=== PATIENT | male | born 1940 | race Caucasian/White ===

== ENCOUNTER 2017-02-25 20:52 | Emergency (ER) | payer MEDICARE, BC ==
[2017-02-25 21:28] VITALS: BP 152/82
--- NOTE | 2017-02-25 22:57 | EDM.PDOC ---
ED HPI GENERAL MEDICAL PROBLEM - General Chief Complaint: Genitourinary Problem Stated Complaint: BLOOD IN URINE Time Seen by Provider: 02/25/17 21:28 Source of Information: Reports: Patient History Limitations: Reports: No Limitations - History of Present Illness INITIAL COMMENTS - FREE TEXT/NARRATIVE: This patient complains of blood in the urine. He did some lifting this morning. He is worried because he's had 3 hernia surgeries. He complains of some minor pain in the left side of the lower abdomen over the inguinal canal. He denies any Dysuria. There's been no fever. He denies any other bleeding problems. He's not using any kind of anticoagulation. - Related Data Allergies Allergy/AdvReac Type Severity Reaction Status Date / Time No Known Allergies Allergy Verified 09/16/13 08:00 Home Meds: Home Meds Carvedilol Phosphate [Coreg Cr] 40 mg PO DAILY 02/25/17 [History] Lisinopril 40 mg PO DAILY 02/25/17 [History] Tamsulosin [Flomax] 0.4 mg PO DAILY 02/25/17 [History] Tiotropium [Spiriva HandiHaler] 1 cap INH DAILY 02/25/17 [History] rOPINIRole HCl [Requip] 1 mg PO BEDTIME 02/25/17 [History] Past Medical History HEENT History: Reports: Impaired Vision Cardiovascular History: Reports: CAD, Hypertension Respiratory History: Reports: COPD Genitourinary History: Reports: Prostate Disorder, Renal Calculus Musculoskeletal History: Reports: Arthritis, Back Pain, Chronic Endocrine/Metabolic History: Reports: Diabetes, Type II - Past Surgical History Male Surgical History: Reports: TURP-Transurethral Resection of Prostate Social & Family History - Tobacco Use Smoking Status *Q: Never Smoker - Caffeine Use Caffeine Use: Reports: Coffee, Soda ED ROS GENERAL - Review of Systems Review Of Systems: ROS reveals no pertinent complaints other than HPI. ED EXAM, RENAL/ - Physical Exam Exam: See Below Exam Limited By: No Limitations General Appearance: Alert, WD/WN, No Apparent Distress Respiratory/Chest: Lungs Clear Cardiovascular: Normal Peripheral Pulses, Regular Rate, Rhythm GI/Abdominal: Normal Bowel Sounds, Soft, Non-Tender (Male) Exam: No Hernia, Normal Inspection. No: Penile Lesions Extremities: Normal Inspection Course - Vital Signs Last Recorded V/S: Last Vital Signs Temp 36.9 C 02/25/17 21:29 Pulse 69 02/25/17 21:29 Resp 18 02/25/17 21:29 BP 152/82 H 02/25/17 21:29 Pulse Ox 95 02/25/17 21:29 - Orders/Labs/Meds Labs: Laboratory Tests 02/25/17 Range/Units 21:49 Urine Color Red Urine Appearance Turbid Urine pH 7.0 (4.5-8.0) Ur Specific [place] 1.010 (1.008-1.030) Urine Protein 30 H (NEGATIVE) mg/dL Urine Glucose (UA) Normal (NEGATIVE) mg/dL Urine Ketones Negative (NEGATIVE) mg/dL Urine Occult Blood Large (NEGATIVE) Urine Nitrite Negative (NEGAITVE) Urine Bilirubin Negative (NEGATIVE) Urine Urobilinogen Normal (NORMAL) mg/dL Ur Leukocyte Esterase Negative (NEGATIVE) Urine RBC Packed H (0-5) Urine WBC Not seen (0-5) Ur Epithelial Cells Rare Amorphous Sediment Not seen Urine Bacteria Few Urine Mucus Not seen - Re-Assessments/Exams Free Text/Narrative Re-Assessment/Exam: 02/26/17 04:11 Urine is packed with RBCs no obvious clots. No evidence of any infection. There is nothing to suggest a coagulopathy so labs were not done for that. If the bleeding doesn't stop within the next 2 days and he'll need further workup. Departure - Departure Time of Disposition: 22:54 Disposition: Home, Self-Care 01 Condition: Fair Clinical Impression: Hematuria syndrome - Discharge Information Instructions: Hematuria, Adult Referrals: Brian Mays MD [Primary Care Provider] - Forms: ED Department Discharge Additional Instructions: There is no evidence of an infection that would cause bleeding. If the bleeding doesn't stop in the next 2 days then you will need to be seen in clinic on Monday and probably be referred to a urologist. You will also need blood work and maybe imaging. Don't take any aspirin, motrin or similar meds. You may continue all the other meds.
== END 2017-02-25 23:08 | disposition home or self-care (01) ==
LOC: JP.ED 20:52
DX: R31.9 Hematuria, unspecified (principal); H54.7 Unspecified visual loss; I25.10 Atherosclerotic heart disease of native coronary artery without angina pectoris; I10 Essential (primary) hypertension; M19.90 Unspecified osteoarthritis, unspecified site; J44.9 Chronic obstructive pulmonary disease, unspecified; E11.9 Type 2 diabetes mellitus without complications; Z87.442 Personal history of urinary calculi; Z79.899 Other long term (current) drug therapy; Z98.890 Other specified postprocedural states
CPT/HCPCS: 81001; 99282; 99284

== ENCOUNTER 2017-04-26 06:17 | Emergency (ER) | payer MEDICARE, BC ==
[2017-04-26 06:33] VITALS: BP 168/97
[2017-04-26] MEDS ORDERED: Phenazopyridine 95 MG Tab PO ONE (07:05)
--- NOTE | 2017-04-26 07:22 | EDM.PDOC ---
[id number]: CAN'T URINATE Time Seen by Provider: 04/26/17 07:00 Source of Information: Reports: Patient, Family History Limitations: Reports: No Limitations - History of Present Illness INITIAL COMMENTS - FREE TEXT/NARRATIVE: 76-year-old male with prostatic hypertrophy has had problems with urinary retention in the past developed difficulty urinating late last evening and this morning arrived very uncomfortable just urinating small amounts at a time. No fevers or chills, no back pain. Onset: Gradual (Over the last 12 hours) Severity: Moderate Associated Symptoms: Denies: Chest Pain, Fever/Chills, Nausea/Vomiting, Shortness of Breath Bladder Pain Score (Numeric/FACES): 7 - Related Data Allergies Allergy/AdvReac Type Severity Reaction Status Date / Time No Known Allergies Allergy Verified 04/26/17 06:33 Home Meds: Home Meds Carvedilol Phosphate [Coreg Cr] 40 mg PO DAILY 02/25/17 [History] Lisinopril 40 mg PO DAILY 02/25/17 [History] Tamsulosin [Flomax] 0.4 mg PO DAILY 02/25/17 [History] Tiotropium [Spiriva HandiHaler] 1 cap INH DAILY 02/25/17 [History] rOPINIRole HCl [Requip] 1 mg PO BEDTIME 02/25/17 [History] Finasteride 5 mg PO DAILY 04/26/17 [History] Past Medical History HEENT History: Reports: Impaired Vision Cardiovascular History: Reports: CAD, Hypertension Respiratory History: Reports: COPD Genitourinary History: Reports: Prostate Disorder, Renal Calculus Musculoskeletal History: Reports: Arthritis, Back Pain, Chronic Endocrine/Metabolic History: Reports: Diabetes, Type II - Past Surgical History Male Surgical History: Reports: TURP-Transurethral Resection of Prostate Social & Family History - Tobacco Use Smoking Status *Q: Never Smoker - Caffeine Use Caffeine Use: Reports: Coffee, Soda - Recreational Drug Use Recreational Drug Use: No ED ROS GENERAL - Review of Systems Review Of Systems: See Below Constitutional: Denies: Fever, Chills, Malaise Respiratory: Denies: Shortness of Breath Cardiovascular: Denies: Chest Pain GI/Abdominal: Reports: Abdominal Pain. Denies: Nausea, Vomiting : Reports: Urinary Retention ED EXAM, RENAL/ - Physical Exam Exam: See Below Exam Limited By: No Limitations General Appearance: Alert, Mild Distress (Very uncomfortable) Respiratory/Chest: No Respiratory Distress Cardiovascular: Regular Rate, Rhythm GI/Abdominal: Tender (Tender with bladder distention over the lower abdomen) Neurological: Alert, Oriented Psychiatric: Anxious Skin Exam: Warm, Dry Course - Vital Signs Last Recorded V/S: Last Vital Signs Temp 99.0 F 04/26/17 06:30 Pulse 77 04/26/17 06:30 Resp 26 H 04/26/17 06:30 BP 168/97 H 04/26/17 06:30 Pulse Ox 96 04/26/17 06:30 - Orders/Labs/Meds Orders: Active Orders 24 hr Category Date Time Status CULTURE URINE [RM] Stat Lab 04/26/17 06:50 Received Labs: Laboratory Tests 04/26/17 Range/Units 06:49 Urine Color Yellow Urine Appearance Clear Urine pH 7.0 (4.5-8.0) Ur Specific [place] 1.005 L (1.008-1.030) Urine Protein Negative (NEGATIVE) mg/dL Urine Glucose (UA) Normal (NEGATIVE) mg/dL Urine Ketones Negative (NEGATIVE) mg/dL Urine Occult Blood Moderate (NEGATIVE) Urine Nitrite Positive H (NEGAITVE) Urine Bilirubin Negative (NEGATIVE) Urine Urobilinogen Normal (NORMAL) mg/dL Ur Leukocyte Esterase Moderate (NEGATIVE) Urine RBC 0-5 (0-5) Urine WBC 0-5 (0-5) Ur Epithelial Cells Not seen Amorphous Sediment Not seen Urine Bacteria Many Urine Mucus Not seen Meds: Medications Discontinued Medications Generic Name Dose Route Start Last Admin Trade Name Freq PRN Reason Stop Dose Admin Phenazopyridine HCl 190 mg 04/26/17 07:05 04/26/17 07:09 Urinary Pain Relief PO 04/26/17 07:06 190 mg ONETIME ONE Administration - Re-Assessments/Exams Free Text/Narrative Re-Assessment/Exam: 04/26/17 07:19 Bladder scan revealed over 600 mL of urine in the bladder after urination. A Payne was then placed that revealed his symptoms initially but he developed bladder spasms. He was given 200 mg of Pyridium by mouth. A UA revealed nitrite positive urine with bacteria so culture was initiated and he was placed on cephalexin 500 3 times a day for 5 days. Patient wanted to keep the Payne in place for a few days, he was instructed to have it removed before the antibiotics are finished. She was also given 20 doses of Pyridium to take as needed. Departure - Departure Time of Disposition: 07:40 Disposition: Home, Self-Care 01 Condition: Good Clinical Impression: UTI, Urinary tract infectious disease, Acute retention of urine - Discharge Information Instructions: Urinary Tract Infection, Adult, [id number] Referrals: PCP,None [Primary Care Provider] - Forms: ED Department Discharge Care Plan Goals: Take antibiotic 3 times a day for 5 days, take bladder spasm medicine every 8 hours if needed and remove the Payne within the next 5 days. You will be contacted if a different antibiotic is needed, return anytime if worsening or concerns. - My Orders Last 24 Hours: My Active Orders 04/26/17 06:50 CULTURE URINE [RM] Stat - Assessment/Plan Last 24 Hours: My Active Orders 04/26/17 06:50 CULTURE URINE [RM] Stat
== END 2017-04-26 07:49 | disposition home or self-care (01) ==
LOC: JP.ED 06:17
DX: N39.0 Urinary tract infection, site not specified (principal); R33.9 Retention of urine, unspecified; I25.10 Atherosclerotic heart disease of native coronary artery without angina pectoris; I10 Essential (primary) hypertension; J44.9 Chronic obstructive pulmonary disease, unspecified; M19.90 Unspecified osteoarthritis, unspecified site; E11.9 Type 2 diabetes mellitus without complications; Z79.899 Other long term (current) drug therapy; Z87.442 Personal history of urinary calculi; Z98.890 Other specified postprocedural states
CPT/HCPCS: 51702; 81001; 87086; 99284; A9270; 87088; 87186

== ENCOUNTER 2017-09-22 14:59 | Emergency (ER) | payer MEDICARE, BC ==
--- NOTE | 2017-09-22 15:47 | EDM.PDOC ---
ED HPI GENERAL MEDICAL PROBLEM - General Chief Complaint: General Stated Complaint: NO ENERGY, OFF BALANCE Time Seen by Provider: 09/22/17 15:15 Source of Information: Reports: Patient, Family History Limitations: Reports: No Limitations - History of Present Illness INITIAL COMMENTS - FREE TEXT/NARRATIVE: pt has been very fatiqued for the past few days. He is off balance slightly when he tries to move. He is quite sob. He has a history of copd. Onset: Gradual Duration: Day(s):, Getting Worse Associated Symptoms: Reports: Shortness of Breath, Other (pt is feeling off balance. ) Back Pain Score (Numeric/FACES): 2 - Related Data Allergies Allergy/AdvReac Type Severity Reaction Status Date / Time No Known Allergies Allergy Verified 04/26/17 06:33 Home Meds: Home Meds Carvedilol Phosphate [Coreg Cr] 40 mg PO DAILY 02/25/17 [History] Lisinopril 40 mg PO DAILY 02/25/17 [History] Tamsulosin [Flomax] 0.4 mg PO DAILY 02/25/17 [History] Tiotropium [Spiriva HandiHaler] 1 cap INH DAILY 02/25/17 [History] rOPINIRole HCl [Requip] 1 mg PO BEDTIME 02/25/17 [History] Finasteride 5 mg PO DAILY 04/26/17 [History] Furosemide [Furosemide] 40 mg PO DAILY 09/22/17 [History] Spironolactone [Aldactone] 25 mg PO DAILY 09/22/17 [History] Warfarin Sodium [Jantoven] 8 mg PO ASDIRECTED 09/22/17 [History] Past Medical History HEENT History: Reports: Impaired Vision Cardiovascular History: Reports: Afib, CAD, Heart Failure, Hypertension Respiratory History: Reports: COPD Genitourinary History: Reports: Prostate Disorder, Renal Calculus Musculoskeletal History: Reports: Arthritis, Back Pain, Chronic Endocrine/Metabolic History: Reports: Diabetes, Type II - Past Surgical History Male Surgical History: Reports: TURP-Transurethral Resection of Prostate Social & Family History - Tobacco Use Smoking Status *Q: Never Smoker - Caffeine Use Caffeine Use: Reports: Coffee - Recreational Drug Use Recreational Drug Use: No ED ROS GENERAL - Review of Systems Review Of Systems: See Below Constitutional: Reports: No Symptoms HEENT: Reports: Other (pt does not have a vertigo like symptom but he is off balance when he stands up. ) Respiratory: Reports: Shortness of Breath Cardiovascular: Reports: No Symptoms Endocrine: Reports: No Symptoms GI/Abdominal: Reports: No Symptoms : Reports: No Symptoms Musculoskeletal: Reports: No Symptoms Skin: Reports: No Symptoms ED EXAM, GENERAL - Physical Exam Exam: See Below Free Text/Narrative:: pt has been fatiqued and off balance when he stands up. He has not had chest pain. He has been slightly more sob although his o2 sats remain good. r Exam Limited By: No Limitations General Appearance: Alert, Mild Distress, Other (pupils are equal and reactive to lite. ) Ears: Normal TMs Nose: Normal Inspection Throat/Mouth: Normal Inspection Head: Atraumatic Neck: Normal Inspection Respiratory/Chest: Decreased Breath Sounds, Other (pt is maintaining o2 sats at the low 90s. ) Cardiovascular: Regular Rate, Rhythm, Other (pt is having some ventricular ectopics. ) GI/Abdominal: Soft, Non-Tender (Male) Exam: Deferred Rectal (Males) Exam: Deferred Back Exam: Normal Inspection Extremities: Other (pt has good control of the edema) Neurological: Alert, Oriented, Normal Cognition Psychiatric: Normal Affect Course - Vital Signs Last Recorded V/S: Last Vital Signs Temp 36.5 C 09/22/17 18:29 Pulse 67 09/22/17 18:29 Resp 16 09/22/17 18:29 BP 123/64 09/22/17 18:29 Pulse Ox 94 L 09/22/17 18:29 - Orders/Labs/Meds Orders: Active Orders 24 hr Category Date Time Status EKG Documentation Completion [RC] ASDIRECTED Care 09/22/17 16:00 Active Chest 2V [CR] Stat Exams 09/22/17 16:01 Taken Chest wo Cont [CT] Stat Exams 09/22/17 16:50 Taken CULTURE URINE [RM] Stat Lab 09/22/17 17:30 Received cefTRIAXone 1 GM,Lidocaine 1% 2.1 ML Med 09/22/17 18:47 Ordered cefTRIAXone [Rocephin] 1 gm Lidocaine 1% [Xylocaine-MPF 1%] 2.1 ml IM ONETIME EKG 12 Lead [EK] Routine Ther 09/22/17 16:00 Ordered Labs: Laboratory Tests 09/22/17 09/22/17 09/22/17 Range/Units 15:45 15:45 15:45 WBC 7.5 (4.5-11.0) K/uL RBC 5.18 (4.30-5.90) M/uL Hgb 14.3 (12.0-15.0) g/dL Hct 42.4 (40.0-54.0) % MCV 82 (80-98) fL MCH 28 (27-31) pg MCHC 34 (32-36) % Plt Count 212 (150-400) K/uL Neut % (Auto) 52 (36-66) % Lymph % (Auto) 35 (24-44) % [place] % (Auto) 11 H (2-6) % Eos % (Auto) 2 (2-4) % Baso % (Auto) 1 (0-1) % PT 24.9 H (9.5-12.0) sec INR 2.25 H (0.80-1.20) Sodium 142 (140-148) mmol/L Potassium 4.2 (3.6-5.2) mmol/L Chloride 107 (100-108) mmol/L Carbon Dioxide 23 (21-32) mmol/L Anion Gap 12.4 (5.0-14.0) mmol/L BUN 24 H (7-18) mg/dL Creatinine 0.9 (0.8-1.3) mg/dL Est Cr Clr Drug Dosing 74.25 mL/min Estimated GFR (MDRD) > 60 (>60) Glucose 119 H (74-106) mg/dL Lactic Acid (0.4-2.0) mmol/L Calcium 8.5 (8.5-10.1) mg/dL Total Bilirubin 0.3 (0.2-1.0) mg/dL AST 17 (15-37) U/L ALT 33 (12-78) U/L Alkaline Phosphatase 121 H (46-116) U/L Troponin I (0.000-0.056) ng/mL C-Reactive Protein 0.44 H (0.0-0.3) mg/dL Total Protein 6.3 L (6.4-8.2) g/dL Albumin 3.3 L (3.4-5.0) g/dL Globulin 3.0 (2.3-3.5) g/dL Albumin/Globulin Ratio 1.1 L (1.2-2.2) Urine Color Urine Appearance Urine pH (4.5-8.0) Ur Specific [place] (1.008-1.030) Urine Protein (NEGATIVE) mg/dL Urine Glucose (UA) (NEGATIVE) mg/dL Urine Ketones (NEGATIVE) mg/dL Urine Occult Blood (NEGATIVE) Urine Nitrite (NEGAITVE) Urine Bilirubin (NEGATIVE) Urine Urobilinogen (NORMAL) mg/dL Ur Leukocyte Esterase (NEGATIVE) Urine RBC (0-5) Urine WBC (0-5) Ur Epithelial Cells Amorphous Sediment Urine Bacteria Urine Mucus 09/22/17 09/22/17 09/22/17 Range/Units 16:01 16:30 17:20 WBC (4.5-11.0) K/uL RBC (4.30-5.90) M/uL Hgb (12.0-15.0) g/dL Hct (40.0-54.0) % MCV (80-98) fL MCH (27-31) pg MCHC (32-36) % Plt Count (150-400) K/uL Neut % (Auto) (36-66) % Lymph % (Auto) (24-44) % [place] % (Auto) (2-6) % Eos % (Auto) (2-4) % Baso % (Auto) (0-1) % PT (9.5-12.0) sec INR (0.80-1.20) Sodium (140-148) mmol/L Potassium (3.6-5.2) mmol/L Chloride (100-108) mmol/L Carbon Dioxide (21-32) mmol/L Anion Gap (5.0-14.0) mmol/L BUN (7-18) mg/dL Creatinine (0.8-1.3) mg/dL Est Cr Clr Drug Dosing mL/min Estimated GFR (MDRD) (>60) Glucose (74-106) mg/dL Lactic Acid 1.4 (0.4-2.0) mmol/L Calcium (8.5-10.1) mg/dL Total Bilirubin (0.2-1.0) mg/dL AST (15-37) U/L ALT (12-78) U/L Alkaline Phosphatase (46-116) U/L Troponin I < 0.017 (0.000-0.056) ng/mL C-Reactive Protein (0.0-0.3) mg/dL Total Protein (6.4-8.2) g/dL Albumin (3.4-5.0) g/dL Globulin (2.3-3.5) g/dL Albumin/Globulin Ratio (1.2-2.2) Urine Color Yellow Urine Appearance Slightly cloudy Urine pH 5.0 (4.5-8.0) Ur Specific [place] 1.020 (1.008-1.030) Urine Protein Negative (NEGATIVE) mg/dL Urine Glucose (UA) Normal (NEGATIVE) mg/dL Urine Ketones Negative (NEGATIVE) mg/dL Urine Occult Blood Negative (NEGATIVE) Urine Nitrite Positive H (NEGAITVE) Urine Bilirubin Negative (NEGATIVE) Urine Urobilinogen Normal (NORMAL) mg/dL Ur Leukocyte Esterase Large (NEGATIVE) Urine RBC 0-5 (0-5) Urine WBC Semi-packed H (0-5) Ur Epithelial Cells Rare Amorphous Sediment Not seen Urine Bacteria Many Urine Mucus Not seen - Re-Assessments/Exams Free Text/Narrative Re-Assessment/Exam: 09/22/17 18:56 pt hd a chest xray with a rounded object in the rt chest. A cat scan of the chest did not reveal chf but he had a kidney cyst that was seen on the chest xray, He does have sig copd. He was found to have a uti. His bp has come down nicely Departure - Departure Time of Disposition: 18:57 Disposition: Home, Self-Care 01 Condition: Fair Clinical Impression: UTI (urinary tract infection), COPD (chronic obstructive pulmonary disease) - Discharge Information Referrals: Brian Mays MD [Primary Care Provider] - Forms: ED Department Discharge Care Plan Goals: push fluids, cipro 500mg bid, cont other meds, appt with Dr Mays Mon or Monday. - My Orders Last 24 Hours: My Active Orders 09/22/17 16:00 EKG Documentation Completion [RC] ASDIRECTED EKG 12 Lead [EK] Routine 09/22/17 16:01 Chest 2V [CR] Stat 09/22/17 16:50 Chest wo Cont [CT] Stat 09/22/17 17:30 CULTURE URINE [RM] Stat 09/22/17 18:47 cefTRIAXone 1 GM,Lidocaine 1% 2.1 ML cefTRIAXone [Rocephin] 1 gm Lidocaine 1% [ Xylocaine-MPF 1%] 2.1 ml IM ONETIME - Assessment/Plan Last 24 Hours: My Active Orders 09/22/17 16:00 EKG Documentation Completion [RC] ASDIRECTED EKG 12 Lead [EK] Routine 09/22/17 16:01 Chest 2V [CR] Stat 09/22/17 16:50 Chest wo Cont [CT] Stat 09/22/17 17:30 CULTURE URINE [RM] Stat 09/22/17 18:47 cefTRIAXone 1 GM,Lidocaine 1% 2.1 ML cefTRIAXone [Rocephin] 1 gm Lidocaine 1% [ Xylocaine-MPF 1%] 2.1 ml IM ONETIME
[2017-09-22 18:29] VITALS: BP 123/64
[2017-09-22] MEDS ORDERED: cefTRIAXone 1 GM, Lidocaine 1% 2.1 ML IM ONE ×2 (18:47)
--- NOTE | 2017-09-25 09:45 | CR ---
Chest 2V INDICATION: sob FINDINGS: Infiltration right hemidiaphragm. Mild hyperinflation. Chest otherwise negative.
== END 2017-09-22 19:14 | disposition home or self-care (01) ==
LOC: JP.ED 14:59
DX: N39.0 Urinary tract infection, site not specified (principal); J44.9 Chronic obstructive pulmonary disease, unspecified; I11.0 Hypertensive heart disease with heart failure; I50.9 Heart failure, unspecified; I48.91 Unspecified atrial fibrillation; I25.10 Atherosclerotic heart disease of native coronary artery without angina pectoris; R55 Syncope and collapse; Z79.899 Other long term (current) drug therapy
CPT/HCPCS: 36415; 71046; 71250; 80053; 81001; 83605; 84484; 85025; 85610; 86140; 87086; 87088; 87186; 93005; 96372; 99283; 99285; J0696; 93010

== ENCOUNTER 2019-03-15 20:18 | Emergency (ER) | payer MEDICARE, BC ==
[2019-03-15 21:04] VITALS: BP 143/71; PULSE 70
[2019-03-15] MEDS ORDERED: Lidocaine 2% Jelly 10 ML Urojet MUCMEM ONE (21:33)
--- NOTE | 2019-03-15 21:36 | EDM.PDOC ---
ED HPI GENERAL MEDICAL PROBLEM - General Chief Complaint: Genitourinary Problem Stated Complaint: UNABLE TO URINATE Time Seen by Provider: 03/15/19 21:34 Source of Information: Reports: Patient History Limitations: Reports: No Limitations - History of Present Illness INITIAL COMMENTS - FREE TEXT/NARRATIVE: pt has not been able to void for the past 12-14 hours. Onset: Today, Other (pt has just been dribbling. ) Duration: Hour(s): Location: Reports: Abdomen, Other (pt is very uncomfortable when he does lie down. ) Associated Symptoms: Reports: No Other Symptoms Left Lower Abdomen Pain Score (Numeric/FACES): 6 - Related Data Allergies Allergy/AdvReac Type Severity Reaction Status Date / Time No Known Allergies Allergy Verified 02/23/18 22:40 Home Meds: Home Meds Lisinopril 40 mg PO DAILY 02/25/17 [History] Tamsulosin [Flomax] 0.4 mg PO DAILY 02/25/17 [History] Tiotropium [Spiriva HandiHaler] 1 cap INH DAILY 02/25/17 [History] rOPINIRole HCl [Requip] 1 mg PO BID 02/25/17 [History] Finasteride 5 mg PO DAILY 04/26/17 [History] Furosemide 40 mg PO DAILY 09/22/17 [History] Spironolactone [Aldactone] 25 mg PO DAILY 09/22/17 [History] Warfarin Sodium [Jantoven] 5 mg PO ASDIRECTED 09/22/17 [History] Aspirin [Lo-Dose Aspirin EC] 81 mg PO DAILY 02/23/18 [History] Carvedilol 25 mg PO BID 02/24/18 [History] Past Medical History HEENT History: Reports: Impaired Vision Cardiovascular History: Reports: Afib, CAD, Heart Failure, Hypertension Respiratory History: Reports: COPD Genitourinary History: Reports: Prostate Disorder, Renal Calculus Musculoskeletal History: Reports: Arthritis, Back Pain, Chronic Psychiatric History: Reports: Depression Endocrine/Metabolic History: Reports: Diabetes, Type II - Past Surgical History GI Surgical History: Reports: Colonoscopy, Hernia, Inguinal Male Surgical History: Reports: TURP-Transurethral Resection of Prostate Social & Family History - Caffeine Use Caffeine Use: Reports: Coffee, Soda ED ROS GENERAL - Review of Systems Review Of Systems: See Below Constitutional: Reports: No Symptoms HEENT: Reports: No Symptoms Respiratory: Reports: No Symptoms Cardiovascular: Reports: No Symptoms Endocrine: Reports: No Symptoms GI/Abdominal: Reports: Abdominal Pain, Other (pt is having alot of discomfort in the left pelvis area when he goes to lie down. ) : Reports: Urinary Retention Musculoskeletal: Reports: No Symptoms ED EXAM, RENAL/ - Physical Exam Exam: See Below Text/Narrative:: pt arrived with difficulty voiding. he has elenita going only in small amounts. He has not voided in adequate amounts since 7thirty am. Exam Limited By: No Limitations General Appearance: Alert, Anxious, Moderate Distress Ears: Normal TMs Nose: Normal Inspection Throat/Mouth: Normal Inspection Head: Atraumatic Neck: Normal Inspection Respiratory/Chest: No Accessory Muscle Use Cardiovascular: Regular Rate, Rhythm GI/Abdominal: Soft, Tender, Other (particularly in the left supra pupic area. ) Course - Vital Signs Last Recorded V/S: Last Vital Signs Temp 36.8 C 03/15/19 21:02 Pulse 70 03/15/19 21:02 Resp 16 03/15/19 21:02 BP 143/71 H 03/15/19 21:02 Pulse Ox 93 L 03/15/19 21:02 - Orders/Labs/Meds Orders: Active Orders 24 hr Category Date Time Status Bladder Scan [RC] ASDIRECTED Care 03/15/19 21:27 Active Gutierrez Catheter Insertion [Insert Urinary Catheter] [OM. Care 03/15/19 21:45 Ordered PC] Q24H Urinary Catheter Assessment [RC] ASDIRECTED Care 03/15/19 21:33 Active CULTURE URINE [RM] Stat Lab 03/15/19 22:00 Received Sodium Chloride 0.9% [Normal Saline] 1,000 ml Med 03/15/19 22:45 Active IV ASDIRECTED Medication Orders Sodium Chloride (Normal Saline) 1,000 mls @ 999 mls/hr IV ASDIRECTED MARY Last Admin: 03/15/19 22:49 Dose: 999 mls/hr Labs: Laboratory Tests 03/15/19 03/15/19 03/15/19 Range/Units 21:27 22:23 22:23 WBC 12.0 H (4.5-11.0) K/uL RBC 4.68 (4.30-5.90) M/uL Hgb 12.6 (12.0-15.0) g/dL Hct 40.1 (40.0-54.0) % MCV 86 (80-98) fL MCH 27 (27-31) pg MCHC 31 L (32-36) % Plt Count 212 (150-400) K/uL Neut % (Auto) 73 H (36-66) % Lymph % (Auto) 19 L (24-44) % Wood % (Auto) 7 H (2-6) % Eos % (Auto) 0 L (2-4) % Baso % (Auto) 0 (0-1) % Sodium 142 (140-148) mmol/L Potassium 3.5 L (3.6-5.2) mmol/L Chloride 107 (100-108) mmol/L Carbon Dioxide 26 (21-32) mmol/L Anion Gap 12.5 (5.0-14.0) mmol/L BUN 19 H (7-18) mg/dL Creatinine 0.8 (0.8-1.3) mg/dL Est Cr Clr Drug Dosing 83.23 mL/min Estimated GFR (MDRD) > 60 (>60) Glucose 103 (74-106) mg/dL Calcium 8.9 (8.5-10.1) mg/dL Total Bilirubin 1.2 H D (0.2-1.0) mg/dL AST 21 (15-37) U/L ALT 37 (12-78) U/L Alkaline Phosphatase 108 (46-116) U/L Total Protein 6.2 L (6.4-8.2) g/dL Albumin 3.0 L (3.4-5.0) g/dL Globulin 3.2 (2.3-3.5) g/dL Albumin/Globulin Ratio 0.9 L (1.2-2.2) Urine Color Yellow Urine Appearance Cloudy Urine pH 5.0 (4.5-8.0) Ur Specific D Hanis 1.020 (1.008-1.030) Urine Protein Trace (NEGATIVE) mg/dL Urine Glucose (UA) Normal (NEGATIVE) mg/dL Urine Ketones Negative (NEGATIVE) mg/dL Urine Occult Blood Large (NEGATIVE) Urine Nitrite Positive H (NEGAITVE) Urine Bilirubin Negative (NEGATIVE) Urine Urobilinogen Normal (NORMAL) mg/dL Ur Leukocyte Esterase Large (NEGATIVE) Urine RBC 10-20 H (0-5) Urine WBC 50-75 H (0-5) Ur Epithelial Cells Not seen Amorphous Sediment Not seen Urine Bacteria Many Urine Mucus Not seen Meds: Medications Generic Name Dose Route Start Last Admin Trade Name Dada PRN Reason Stop Dose Admin Sodium Chloride 1,000 mls @ 999 mls/hr 03/15/19 22:45 03/15/19 22:49 Normal Saline IV 999 mls/hr ASDIRECTED MARY Administration Discontinued Medications Generic Name Dose Route Start Last Admin Trade Name Dada PRN Reason Stop Dose Admin Ceftriaxone Sodium 1 gm/ 50 mls @ 100 mls/hr 03/15/19 22:35 03/15/19 22:50 Sodium Chloride IV 03/15/19 23:04 100 mls/hr ONETIME ONE Administration Lidocaine HCl 10 ml 03/15/19 21:33 03/15/19 21:51 Xylocaine 2% Jelly MUCMEM 03/15/19 21:34 10 ml ONETIME ONE Administration Phenazopyridine HCl 190 mg 03/15/19 22:36 03/15/19 22:47 Urinary Pain Relief PO 03/15/19 22:37 190 mg ONETIME ONE Administration - Re-Assessments/Exams Free Text/Narrative Re-Assessment/Exam: 03/15/19 23:51 urine is very infected and was cultured. He will keep the gutierrez cath in until monday or Monday. Pt was given rocephen 1 gm iv. Departure - Departure Time of Disposition: 23:44 Disposition: Home, Self-Care 01 Condition: Fair Clinical Impression: UTI (urinary tract infection), Urinary retention - Discharge Information Referrals: PCP,None [Primary Care Provider] - Forms: ED Department Discharge Care Plan Goals: CIPRO 500MG BID, PUSH FLUIDS, RTC monday AND GET HIS GUTIERREZ CATH OUT, RTC IF SIG TEMP SPIKES. appt with Dr Guerrier. - My Orders Last 24 Hours: My Active Orders 03/15/19 21:27 Bladder Scan [RC] ASDIRECTED 03/15/19 21:33 Urinary Catheter Assessment [RC] ASDIRECTED 03/15/19 21:45 Gutierrez Catheter Insertion [Insert Urinary Catheter] [OM.PC] Q24H 03/15/19 22:00 CULTURE URINE [RM] Stat 03/15/19 22:45 Sodium Chloride 0.9% [Normal Saline] 1,000 ml IV ASDIRECTED - Assessment/Plan Last 24 Hours: My Active Orders 03/15/19 21:27 Bladder Scan [RC] ASDIRECTED 03/15/19 21:33 Urinary Catheter Assessment [RC] ASDIRECTED 03/15/19 21:45 Gutierrez Catheter Insertion [Insert Urinary Catheter] [OM.PC] Q24H 03/15/19 22:00 CULTURE URINE [RM] Stat 03/15/19 22:45 Sodium Chloride 0.9% [Normal Saline] 1,000 ml IV ASDIRECTED
[2019-03-15] MEDS ORDERED: cefTRIAXone 1 GM in Sodium Chloride 0.9% 50 ML IV ONE (22:35)
[2019-03-15] MEDS ORDERED: Phenazopyridine 95 MG Tab PO ONE (22:36)
[2019-03-15] MEDS ORDERED: Sodium Chloride 0.9% 1,000 ML IV SCH (22:45)
== END 2019-03-16 00:45 | disposition home or self-care (01) ==
LOC: JP.ED 20:18
DX: N39.0 Urinary tract infection, site not specified (principal); R33.9 Retention of urine, unspecified; I11.0 Hypertensive heart disease with heart failure; I50.9 Heart failure, unspecified; I25.10 Atherosclerotic heart disease of native coronary artery without angina pectoris; J44.9 Chronic obstructive pulmonary disease, unspecified; E11.9 Type 2 diabetes mellitus without complications; I48.91 Unspecified atrial fibrillation; Z79.899 Other long term (current) drug therapy
CPT/HCPCS: 36415; 51702; 51798; 80053; 81001; 85025; 87086; 87088; 87186; 96361; 96365; 99283; A9270; J0696; J7030; J7050; 99284

== ENCOUNTER 2025-06-13 19:09 | Emergency (ER) | payer MEDICARE, BC ==
[2025-06-13 20:27] LABS: BASOPHILS ABSOLUTE AUTO 0.06 K/uL (0.00-0.10); BASOPHILS PERCENT AUTO 0.4 % (0.1-1.3); EOSINOPHILS ABSOLUTE AUTO 0.04 K/uL (0.00-0.40); EOSINOPHILS PERCENT AUTO 0.3 % (0.0-5.4); IMMATURE GRAN ABSOLUTE AUTO 0.22 K/uL (0.00-0.23); IMMATURE GRAN PERCENT AUTO 1.4 % (0.0-0.7); LYMPHOCYTES ABSOLUTE AUTO 1.15 K/uL (0.8-3.3); LYMPHOCYTES PERCENT AUTO 7.6 % (11.4-47.7); MONOCYTES ABSOLUTE AUTO 0.72 K/uL (0.20-0.90); MONOCYTES PERCENT AUTO 4.7 % (3.3-12.6); NEUTROPHILS ABSOLUTE AUTO 12.99 K/uL (1.0-7.6); NEUTROPHILS PERCENT AUTO 85.6 % (40.0-78.1); PLATELET COUNT,PLT 245 K/uL (130-375); RED BLOOD CELL COUNT 5.38 M/uL (4.14-5.76); WHITE BLOOD CELL COUNT,WBC 15.2 K/uL (3.2-11.0)
[2025-06-13 20:44] LABS: INR 1.9
[2025-06-13] MEDS: Ketorolac 15 MG/ML SDV IVPUSH ONE (20:46)
[2025-06-13] MEDS: LORazepam 2 MG/ML SDV IVPUSH ONE (20:47)
[2025-06-13 20:49] LABS: A/G RATIO 0.9 (1.2-2.2); ALANINE AMINOTRANSFERASE,ALT 35 U/L (12-78); ASPARTATE AMNIOTRANSFERASE,AST 26 U/L (15-37); BILIRUBIN TOTAL 0.5 mg/dL (0.2-1.0); BLOOD UREA NITROGEN,BUN 38 mg/dL (7-18); CARBON DIOXIDE,CO2 27 mmol/L (21-32); CHLORIDE,CL 104 mmol/L (100-108); CREATININE 1.2 mg/dL (0.8-1.3); EST CRCL DRUG DOSING (CG) 44.19 mL/min; ESTIMATED GFR 59 mL/min (>60); GLUCOSE RANDOM 109 mg/dL (74-106); POTASSIUM,K 5.2 mmol/L (3.6-5.2); PROTEIN TOTAL,TP 7.0 g/dL (6.4-8.2); SODIUM,NA 139 mmol/L (140-148)
[2025-06-13 22:09] VITALS: BP 119/54; PULSE 54
== END 2025-06-13 23:19 | disposition home or self-care (01) ==
LOC: JP.ED 19:09
DX: S22.089A Unspecified fracture of T11-T12 vertebra, initial encounter for closed fracture (principal); I48.91 Unspecified atrial fibrillation; I25.10 Atherosclerotic heart disease of native coronary artery without angina pectoris; I11.0 Hypertensive heart disease with heart failure; I50.9 Heart failure, unspecified; E11.9 Type 2 diabetes mellitus without complications; J44.9 Chronic obstructive pulmonary disease, unspecified; Z79.899 Other long term (current) drug therapy; Z79.01 Long term (current) use of anticoagulants; Z79.82 Long term (current) use of aspirin; W01.0XXA Fall on same level from slipping, tripping and stumbling without subsequent striking against object, initial encounter; Y92.007 Garden or yard of unspecified non-institutional (private) residence as the place of occurrence of the external cause
CPT/HCPCS: 36415; 71250; 72128; 76377; 80053; 84484; 85025; 85610; 96374; 99284; J1885; J2060; 99283

== ENCOUNTER 2025-06-16 13:33 | Inpatient (IN) | payer MEDICARE, BC ==
[2025-06-16] MEDS ORDERED: Sodium Chloride 0.9% 10 ML Syringe FLUSH PRN ×2 (13:51→18:08)
[2025-06-16] MEDS: LORazepam 2 MG/ML SDV IVPUSH ONE ×2 (15:24→16:16)
[2025-06-16] MEDS ORDERED: Ondansetron 4 MG Tab.DIS PO PRN (18:08)
[2025-06-16] MEDS ORDERED: Naloxone 0.4 MG/ML SDV IVPUSH PRN (18:08)
[2025-06-16 18:27] LABS: PLATELET COUNT,PLT 216.0 K/uL (130-375); RED BLOOD CELL COUNT 5.58 M/uL (4.14-5.76); WHITE BLOOD CELL COUNT,WBC 14.9 K/uL (3.2-11.0)
[2025-06-16 18:43] LABS: BLOOD UREA NITROGEN,BUN 37.0 mg/dL (7-18); CARBON DIOXIDE,CO2 28.0 mmol/L (21-32); CHLORIDE,CL 103.0 mmol/L (100-108); CREATININE 1.2 mg/dL (0.8-1.3); EST CRCL DRUG DOSING (CG) 48.5 mL/min; ESTIMATED GFR 59.0 mL/min (>60); GLUCOSE RANDOM 136.0 mg/dL (74-106); POTASSIUM,K 5.5 mmol/L (3.6-5.2); SODIUM,NA 137.0 mmol/L (140-148)
[2025-06-16 20:14] LABS: APPEARANCE,URINE CLEAR (CLEAR); GLUCOSE,URINE 500 mg/dL (NEGATIVE); OCCULT BLOOD,URINE NEGATIVE (NEGATIVE)
[2025-06-16 20:23] LABS: SQUAMOUS EPITHELIAL CELLS,UR NOT SEEN /HPF; UROTHELIAL CELLS,URINE NOT SEEN /HPF
[2025-06-16 21:03] LABS: INR 4.5
[2025-06-16] MEDS: Insulin Lispro 100 Unit/ML 3 ML KwikPen SUBCUT SCH (21:50)
[2025-06-17 06:20] LABS: BASOPHILS ABSOLUTE AUTO 0.04 K/uL (0.00-0.10); BASOPHILS PERCENT AUTO 0.4 % (0.1-1.3); EOSINOPHILS PERCENT AUTO 0.2 % (0.0-5.4); IMMATURE GRAN ABSOLUTE AUTO 0.03 K/uL (0.00-0.23); IMMATURE GRAN PERCENT AUTO 0.3 % (0.0-0.7); LYMPHOCYTES ABSOLUTE AUTO 1.48 K/uL (0.8-3.3); LYMPHOCYTES PERCENT AUTO 15.1 % (11.4-47.7); MONOCYTES ABSOLUTE AUTO 0.90 K/uL (0.20-0.90); MONOCYTES PERCENT AUTO 9.2 % (3.3-12.6); NEUTROPHILS ABSOLUTE AUTO 7.33 K/uL (1.0-7.6); NEUTROPHILS PERCENT AUTO 74.8 % (40.0-78.1); PLATELET COUNT,PLT 204 K/uL (130-375); RED BLOOD CELL COUNT 4.88 M/uL (4.14-5.76); WHITE BLOOD CELL COUNT,WBC 9.8 K/uL (3.2-11.0)
[2025-06-17 06:25] LABS: EOSINOPHILS ABSOLUTE AUTO 0.02 K/uL (0.00-0.40)
[2025-06-17 06:44] LABS: BLOOD UREA NITROGEN,BUN 32.0 mg/dL (7-18); CARBON DIOXIDE,CO2 26.0 mmol/L (21-32); CHLORIDE,CL 107.0 mmol/L (100-108); CREATININE 1.0 mg/dL (0.8-1.3); EST CRCL DRUG DOSING (CG) 53.03 mL/min; ESTIMATED GFR 73.0 mL/min (>60); GLUCOSE RANDOM 90.0 mg/dL (74-106); POTASSIUM,K 3.8 mmol/L (3.6-5.2); SODIUM,NA 142.0 mmol/L (140-148)
[2025-06-17 06:53] LABS: INR 5.0
[2025-06-17] MEDS: Tiotropium Bromide 4 GM Inhalation Spray (2.5mcg/1 dose; 10 doses) INH SCH (08:48)
[2025-06-17] MEDS ORDERED: Non-Formulary Medication 1 Each (Tiotropium [Spiriva Handihaler] 18 MCG Cap) INH SCH (09:00)
[2025-06-17] MEDS: Ondansetron 4 MG/2 ML SDV IV PRN (12:07)
[2025-06-17] MEDS: Nystatin Topical Powder 15 GM Bottle TOP SCH (12:39)
[2025-06-18 08:57] LABS: INR 6.1
[2025-06-18] MEDS: Sennosides/Docusate Sodium 50-8.6 MG Tab PO PRN (09:44)
[2025-06-18] MEDS ORDERED: Albuterol 0.083% 2.5 MG/3 ML Neb Soln NEB PRN (10:48)
[2025-06-18] MEDS: Dexamethasone 4 MG/ML SDV IVPUSH ONE (11:56)
[2025-06-19 06:15] LABS: INR 1.7
[2025-06-20 05:56] LABS: INR 1.2
[2025-06-21 06:18] LABS: INR 1.5
[2025-06-21] MEDS: Magnesium Hydroxide 400 MG/5 ML Susp 30 ML Cup PO ONE (10:32)
[2025-06-22 06:06] LABS: INR 2.5
[2025-06-22] MEDS: Magnesium Hydroxide 400 MG/5 ML Susp 30 ML Cup PO PRN (07:51)
[2025-06-23 05:53] LABS: INR 2.6
[2025-06-23] MEDS: Acetylcysteine 20% 200 MG/ML 4 ML Nebulizer Soln SDV NEB SCH (11:08)
[2025-06-24 06:13] LABS: INR 3.0
[2025-06-25 06:06] LABS: INR 2.3
[2025-06-25 11:15] VITALS: BP 148/73; PULSE 65
== END 2025-06-25 12:55 | DRG 551 ==
LOC: JP.ED 13:33 → JP.MS 17:40
PROVIDERS: ADMIT Nurse Practitioner; ATTEND Hospitalist
DX: S22.088D Other fracture of T11-T12 vertebra, subsequent encounter for fracture with routine healing (principal); S22.080A Wedge compression fracture of T11-T12 vertebra, initial encounter for closed fracture; J96.21 Acute and chronic respiratory failure with hypoxia; J44.1 Chronic obstructive pulmonary disease with (acute) exacerbation; J20.9 Acute bronchitis, unspecified; E11.9 Type 2 diabetes mellitus without complications; I48.0 Paroxysmal atrial fibrillation; W01.0XXD Fall on same level from slipping, tripping and stumbling without subsequent striking against object, subsequent encounter; H54.7 Unspecified visual loss; I25.10 Atherosclerotic heart disease of native coronary artery without angina pectoris; I11.0 Hypertensive heart disease with heart failure; I50.9 Heart failure, unspecified; N42.9 Disorder of prostate, unspecified; M19.90 Unspecified osteoarthritis, unspecified site; E86.0 Dehydration; M54.9 Dorsalgia, unspecified; G89.29 Other chronic pain; F32.A Depression, unspecified; Z98.890 Other specified postprocedural states; Z79.899 Other long term (current) drug therapy; Z79.01 Long term (current) use of anticoagulants; Z79.84 Long term (current) use of oral hypoglycemic drugs; Z99.81 Dependence on supplemental oxygen
CPT/HCPCS: 72146 ×2; 73502 ×2; 96374; 96376; 99284; 99285; A9270; J2060 ×2; 36415; 80048; 81001; 82947; 85025; 85027; 85610; 87086; 94640; 94667; 94668; 97110-GP; 97161-GP; 97165-GO; 97530-GP; J0696; J1100; J1171; J2405; J7030; J8540